=== PATIENT | female | born 1970 | race Caucasian/White ===

== ENCOUNTER 2020-09-13 17:46 | Outpatient (REF) | payer BC, SELFPAY ==
[2020-09-13 20:57] LABS: Calculated LDL 103 mg/dL (<100); Cholesterol 215 mg/dL (<200); HDL Cholesterol 92 mg/dL (40-60); Triglyceride 100 mg/dL (<150)
[2020-09-14 10:13] LABS: ALT 22 U/L (14-59); AST 17 U/L (15-37); Alkaline Phosphatase 69 U/L (46-116); Bilirubin, Direct 0.1 mg/dL (0.0-0.2); Bilirubin, Total 0.3 mg/dL (0.2-1.0); Total Protein 7.8 g/dL (6.4-8.2)
== END 2020-09-13 17:47 | disposition home or self-care (01) ==
LOC: NCHCN 17:46
PROVIDERS: PCP Internal Medicine; Visit Provider Internal Medicine
DX: B35.1 Tinea unguium (principal); Z13.220 Encounter for screening for lipoid disorders
CPT/HCPCS: 80061; 80076

== ENCOUNTER 2020-09-17 22:02 | Outpatient (REF) | payer BC, SELFPAY | END 2020-09-17 22:03 | disposition home or self-care (01) | LOC: NCHCN 22:02 | PROVIDERS: PCP Internal Medicine; Visit Provider Internal Medicine | DX: B35.1 Tinea unguium (principal) | CPT/HCPCS: 87101; 87206 ==

== ENCOUNTER 2021-10-04 16:16 | Outpatient (REF) | payer BC, SELFPAY ==
[2021-10-04 21:22] LABS: HCT 43.2 % (36.0-46.0); HGB 13.9 g/dL (11.2-15.7); MCH 28.5 pg (27.0-33.0); MCHC 32.2 % (32.0-36.0); MCV 88.7 fL (80-95); MPV 12.1 fL (8.0-11.0); Platelet Count 268 10^3/uL (130-400); RBC 4.87 10^6/uL (3.93-5.22); RDW 11.9 % (11.7-14.6); RDW-SD 38.4 fL; WBC 7.42 10^3/uL (4.4-10.8)
[2021-10-04 21:38] LABS: Anion Gap 15.2 mmol/L (3-11); BUN 18 mg/dL (7-18); CO2 25.8 mmol/L (21.0-32.0); CREATININE 0.7 mg/dL (0.55-1.02); Calcium 9.2 mg/dL (8.5-10.1); Chloride 98 mmol/L (98-107); Glucose 98 mg/dL (74-106); Potassium 4.2 mmol/L (3.5-5.1); Sodium 139 mmol/L (136-145); TSH 2.51 uIU/mL (0.36-3.74)
== END 2021-10-04 16:17 | disposition home or self-care (01) ==
LOC: NCHCN 16:16
PROVIDERS: PCP Internal Medicine; Visit Provider Internal Medicine
DX: R53.83 Other fatigue (principal); R00.2 Palpitations; K21.9 Gastro-esophageal reflux disease without esophagitis
CPT/HCPCS: 80048; 85027; 84443

== ENCOUNTER 2022-12-25 10:30 | Outpatient (REF) | payer BC, SELFPAY ==
[2022-12-25 17:21] LABS: Abs Immature Grans 0.04 10^3/uL (0.0-0.06); Absolute Basophil Count 0.09 10^3/uL (0.0-0.2); Absolute Eosinophil Count 0.22 10^3/uL (0.0-0.7); Absolute Lymphocyte Count 1.88 10^3/uL (1.2-3.4); Absolute Monocyte Count 0.54 10^3/uL (0.1-0.8); Absolute Neutrophil Count 3.49 10^3/uL (1.2-6.7); Basophils % 1.4; Eosinophils % 3.5; HCT 41.8 % (36.0-46.0); HGB 13.9 g/dL (11.2-15.7); Immature Grans % 0.6; MCH 29.9 pg (27.0-33.0); MCHC 33.3 % (32.0-36.0); MCV 90 fL (80-95); MPV 12.3 fL (8.0-11.0); Monocytes % 8.6; Neutrophils % 55.9; Platelet Count 254 10^3/uL (130-400); RBC 4.65 10^6/uL (3.93-5.22); RDW 11.7 % (11.7-14.6); WBC 6.26 10^3/uL (4.4-10.8)
[2022-12-25 17:26] LABS: ESR 9 mm/hr (0-30)
[2022-12-25 17:34] LABS: ALT 19 U/L (14-59); AST 15 U/L (15-37); Albumin 3.8 g/dL (3.4-5.0); Alkaline Phosphatase 54 U/L (46-116); Anion Gap 9.7 mmol/L (3-11); BUN 23 mg/dL (7-18); Bilirubin, Total 0.5 mg/dL (0.2-1.0); C-Reactive Protein 1.73 mg/dL (0.0-0.3); CO2 27.3 mmol/L (21.0-32.0); CREATININE 0.9 mg/dL (0.55-1.02); Chloride 103 mmol/L (98-107); Estimated GFR 76.92 (mL/min/1.73m2); Glucose 82 mg/dL (74-106); Potassium 4.6 mmol/L (3.5-5.1); Sodium 140 mmol/L (136-145); Total Protein 7.4 g/dL (6.4-8.2)
[2022-12-25 17:44] LABS: Hemoglobin A1C 5.2 % (<5.7)
[2022-12-27 12:55] LABS: ANA Interpretation Negative (Negative)
== END 2022-12-25 10:31 | disposition home or self-care (01) ==
LOC: NCHCN 10:30
PROVIDERS: PCP Internal Medicine; Visit Provider Internal Medicine
DX: H35.89 Other specified retinal disorders (principal)
CPT/HCPCS: 80053; 85652; 83036; 85025; 86038; 86140

== ENCOUNTER 2023-08-17 21:25 | Outpatient (REF) | payer BC, SELFPAY | END 2023-08-17 21:26 | disposition home or self-care (01) | LOC: LBN 21:25 | PROVIDERS: PCP Internal Medicine; Visit Provider Physician Assistant Medical | DX: J02.9 Acute pharyngitis, unspecified (principal) | CPT/HCPCS: 87070 ==

== ENCOUNTER 2023-11-29 18:21 | Outpatient (REF) | payer BC, SELFPAY ==
[2023-11-29 21:02] LABS: Abs Immature Grans 0.02 10^3/uL (0.0-0.06); Absolute Basophil Count 0.09 10^3/uL (0.0-0.2); Absolute Eosinophil Count 0.49 10^3/uL (0.0-0.7); Absolute Lymphocyte Count 2.17 10^3/uL (1.2-3.4); Absolute Monocyte Count 0.74 10^3/uL (0.1-0.8); Basophils % 1.3 %; Eosinophils % 7.1 %; HCT 43.7 % (36.0-46.0); HGB 14.8 g/dL (11.2-15.7); Immature Grans % 0.3 %; Lymphocytes % 31.4 %; MCH 29.4 pg (27.0-33.0); MCHC 33.9 % (32.0-36.0); MCV 87 fL (80-95); MPV 11.7 fL (8.0-11.0); Monocytes % 10.7 %; Neutrophils % 49.2 %; Platelet Count 285 10^3/uL (130-400); RBC 5.04 10^6/uL (3.93-5.22); RDW 11.9 % (11.7-14.6); RDW-SD 37.5 fL; WBC 6.91 10^3/uL (4.4-10.8)
[2023-11-29 21:35] LABS: C-Reactive Protein < 0.50 mg/dL (<or=0.5)
[2023-12-03 14:27] LABS: Lyme Ab w Rflx to Lyme Confirm Negative (Negative)
== END 2023-11-29 18:22 | disposition home or self-care (01) ==
LOC: NCHCN 18:21
PROVIDERS: PCP Internal Medicine; Visit Provider Family Medicine
DX: M25.59 Pain in other specified joint (principal)
CPT/HCPCS: 84443; 85025; 86140; 86618

== ENCOUNTER → 2023-12-03 03:50 | Outpatient (CLI) | payer BC, SELFPAY ==
--- NOTE | 2023-12-03 | DI.RAD_ITS ---
Exam(s) XR CERVICAL SPINE COMP 4-5V EXAM: XR CERVICAL SPINE COMP 4-5V CLINICAL HISTORY: CERVICAL RADICULOPATHY, M54.12 CERVICAL REGION. TECHNIQUE: 2D digital imaging was performed. COMPARISON: No exams were available for comparison FINDINGS: Five views. No evidence of fracture, listhesis, nor offset of the spinal laminar line. All the disc spaces exhib it normal height. No osteophytes. No facet arthropathy seen. Oblique views reveal no significant L uschka joint osteophytes nor foraminal narrowing. There are no cervical ribs. No osseous lesions. IMPRESSION: No significant radiographic findings on these five views of the cervical spine. DATA REPOSITORY: RADIATION DOSE DELIVERED:
== END ==
PROVIDERS: PCP Internal Medicine; Visit Provider Family Medicine
DX: M54.12 Radiculopathy, cervical region (principal)
CPT/HCPCS: 72050

== ENCOUNTER 2023-12-06 21:45 | Outpatient (REF) | payer BC, SELFPAY ==
[2023-12-06 21:12] LABS: ESR 12 mm/hr (0-30)
[2023-12-07 17:54] LABS: Rheumatoid Factor <8.6 IU/mL (<12.0)
[2023-12-10 14:57] LABS: ANA Interpretation Negative (Negative)
== END 2023-12-06 21:46 | disposition home or self-care (01) ==
LOC: NCHCN 21:45
PROVIDERS: PCP Internal Medicine; Visit Provider Family Medicine
DX: M25.50 Pain in unspecified joint (principal); M79.601 Pain in right arm
CPT/HCPCS: 85652; 86038; 86431

== ENCOUNTER 2024-01-30 15:02 | Outpatient (REF) | payer BC, SELFPAY ==
[2024-01-31 09:46] LABS: Cyclic Citrullinated Peptide <2.5 U/mL (<5.0)
[2024-01-31 09:58] LABS: Lyme Ab w Rflx to Lyme Confirm Negative (Negative)
== END 2024-01-30 15:03 | disposition home or self-care (01) ==
LOC: NCHCN 15:02
PROVIDERS: PCP Family Medicine; Visit Provider Family Medicine
DX: M25.59 Pain in other specified joint (principal)
CPT/HCPCS: 86200; 86618

== ENCOUNTER 2024-04-11 00:34 | Outpatient (CLI) | payer BC, SELFPAY ==
--- NOTE | 2024-04-11 09:32 | DI.RAD_ITS ---
Exam(s) XR SACROILIAC JOINTS EXAM: XR SACROILIAC JOINTS CLINICAL HISTORY: SACRAL LOW BACK PAIN,? SACROILITIS,m53.3. TECHNIQUE: 2D digital imaging was performed. COMPARISON: No exams were available for comparison FINDINGS: No evidence of pelvic fractures nor osseous lesions. There is some disc space narrowing the lower brett mbar spine noted. Respect of the sacroiliac joints there is no evidence of ankylosis. There is mild increased density the lateral-iliac side of the right sacroiliac joint. May indicate subtle sacroiliitis. Similar fin ding not seen on the opposite-left side. IMPRESSION: Possible mild right-sided sacroiliitis. If clinically indicated follow-up MRI with dedicated SI sequ ences can be performed. DATA REPOSITORY: RADIATION DOSE DELIVERED:
--- NOTE | 2024-04-11 09:32 | DI.RAD_ITS ---
Exam(s) XR CHEST 2V PA LATERAL EXAM: XR CHEST 2V PA LATERAL CLINICAL HISTORY: INFLAMMATORY ARTHRITIS,? SARCOID COUGH. TECHNIQUE: 2D digital imaging was performed. COMPARISON: No exams were available for comparison FINDINGS: 2 views: Heart size is normal. The mediastinum is not widened. Lungs are clear. No infiltrates nor pleural effusions. IMPRESSION: No acute pulmonary findings. DATA REPOSITORY: RADIATION DOSE DELIVERED:
== END 2024-04-11 00:54 ==
LOC: DI 00:34
PROVIDERS: PCP Family Medicine; Visit Provider Internal Medicine Rheumatology
DX: M53.3 Sacrococcygeal disorders, not elsewhere classified (principal)
CPT/HCPCS: 71046; 72202

== ENCOUNTER 2024-06-19 01:29 | Outpatient (CLI) | payer BC, SELFPAY ==
--- NOTE | 2024-06-19 | DI.MRI_ITS ---
Exam(s) MR PELVIS WO EXAM: MR PELVIS WO CLINICAL HISTORY: SACRAL BACK PAIN M53.3 SI PAIN, EVAL FOR ARTHRITIS OR SACROIILIITIS TECHNIQUE: Multiplanar multisequence MRI of Pelvis was performed COMPARISON: No exams were available for comparison FINDINGS: OSSEOUS: There is no evidence of sacral fracture nor sacral lesions. Also no abnormal signal in the coccyx an d Gwen coccygeal region. No evidence of stress fractures in the hips nor avascular necrosis nor sign ificant hip joint effusions. SACROILIAC JOINTS: No evidence of abnormal signal within the joint spaces and no evidence of erosions nor ankylosis. No significant signal abnormality around the left SI joint. There is very mild signal abnormality on both sides of the right sacroiliac joint evident on the fat suppressed fluid sensitive sequences (see coronal STIR sequence series 7001/image 14-15). SACRAL CANAL: No evidence of mass nor Tarlov intra sacral cysts. OTHER: There appears to be an element of spinal canal stenosis the lower lumbar spine, not possible t o assess on this type of study which is limited to the sacrum. There are cysts in the left ovary, either 2 adjacent cysts or 1 septated cyst with combined measureme nt of 3 x 2 cm. There a small amount of fluid in the cul-de-sac. IMPRESSION: 1. Subtle right sacroiliac joint signal abnormality as described above. Either related to mild degen erative changes or very mild sacroiliitis. Similar subtle findings not seen in the opposite-left SI joint. No evidence of osseous erosions at the level of the SI joints and no evidence of ankylosis. 2. Possible spinal canal stenosis in the lower lumbar spine seen in the most peripheral aspect of the field of view. If clinically indicated further study with lumbar spine MRI study can be performed. 3. Incidental left adnexal findings as described above. Also small amount of fluid in the cul-de-sac . Recommend follow-up pelvic ultrasound DATA REPOSITORY:
== END 2024-06-19 01:49 ==
LOC: DI 01:29
PROVIDERS: PCP Family Medicine; Visit Provider Internal Medicine Rheumatology
DX: M53.3 Sacrococcygeal disorders, not elsewhere classified (principal)
CPT/HCPCS: 72195

== ENCOUNTER 2024-06-19 02:56 | Outpatient (CLI) | payer BC, SELFPAY ==
[2024-06-19 14:10] LABS: C-Reactive Protein < 0.50 mg/dL (<or=0.5)
== END 2024-06-19 02:57 | disposition home or self-care (01) ==
LOC: LBO 02:56
PROVIDERS: PCP Family Medicine; Visit Provider Internal Medicine Rheumatology
DX: M53.3 Sacrococcygeal disorders, not elsewhere classified (principal)
CPT/HCPCS: 36415; 86140

== ENCOUNTER 2024-09-16 15:52 | Outpatient (REF) | payer BC, SELFPAY ==
[2024-09-16 16:05] LABS: Calculated LDL 139 mg/dL (<100); Cholesterol 237 mg/dL (<200); HDL Cholesterol 74 mg/dL (>or=50); Triglyceride 124 mg/dL (<150)
[2024-09-16 22:36] LABS: HIV-1/2 Ag & Ab Screen Negative (Negative)
== END 2024-09-16 15:53 | disposition home or self-care (01) ==
LOC: NCHCN 15:52
PROVIDERS: PCP Family Medicine; Visit Provider Family Medicine
DX: Z13.6 Encounter for screening for cardiovascular disorders (principal); Z11.4 Encounter for screening for human immunodeficiency virus [HIV]
CPT/HCPCS: 80061; 87389

== ENCOUNTER 2024-11-11 03:50 | Outpatient (CLI) | payer BC, SELFPAY ==
[2024-11-11 15:48] LABS: HCT 41.2 % (36.0-46.0); MCH 29.7 pg (27.0-33.0); MCV 87 fL (80-95); MPV 11.1 fL (8.0-11.0); Platelet Count 245 10^3/uL (130-400); RBC 4.72 10^6/uL (3.93-5.22); RDW 11.9 % (11.7-14.6); RDW-SD 38.5 fL; WBC 10.71 10^3/uL (4.4-10.8)
[2024-11-11 16:06] LABS: Absolute Eosinophil Count 0.11 10^3/uL (0.0-0.7); Absolute Monocyte Count 1.29 10^3/uL (0.1-0.8); Absolute Neutrophil Count 6.32 10^3/uL (1.2-6.7); Atypical Lymphocytes % 1 %; Diff Comment Manual Differential; RBC Morphology Normal
[2024-11-11 16:37] LABS: ALT 20 U/L (14-59); AST 16 U/L (15-37); Albumin 4.2 g/dL (3.4-5.0); Alkaline Phosphatase 123 U/L (46-116); Anion Gap 5.3 mmol/L (3-11); BUN 17 mg/dL (7-18); Bilirubin, Total 0.4 mg/dL (0.2-1.0); CO2 32.7 mmol/L (21.0-32.0); CREATININE 0.8 mg/dL (0.55-1.02); Calcium 9.9 mg/dL (8.5-10.1); Chloride 101 mmol/L (98-107); Glucose 89 mg/dL (74-106); Potassium 3.6 mmol/L (3.5-5.1); Sodium 139 mmol/L (136-145); Total Protein 8.3 g/dL (6.4-8.2)
== END 2024-11-11 03:51 | disposition home or self-care (01) ==
LOC: LBO 03:50
PROVIDERS: PCP Family Medicine; Visit Provider Nurse Practitioner Acute Care
DX: M47.819 Spondylosis without myelopathy or radiculopathy, site unspecified (principal); Z79.899 Other long term (current) drug therapy
CPT/HCPCS: 36415; 80053; 85025

== ENCOUNTER 2025-02-09 06:59 | Day surgery (SDC) | payer BC, SELFPAY ==
--- NOTE | 2025-02-08 17:13 | W.PM.DSUDISC ---
Date of service: 02/09/25 Discharge Plan Disposition Patient Disposition: Home Condition: Good Discharge Details Reason For Visit: screening colonoscopy Attending Provider: Mahamed Eaton Primary Care Provider: Michelle Scott Home Meds and New Rx's Prescriptions: Continued cyanocobalamin (vitamin B-12) 1,000 mcg capsule 1,000 mcg PO DAILY adalimumab-adaz [Hyrimoz(CF)] 40 mg/0.4 mL syringe See Rx Instructions subcut .COMPLEX Rx Instructions: inject one - 40 mg/0.4 mL syringe every 2 weeks subcut sertraline 25 mg tablet 50 mg PO DAILY cholecalciferol (vitamin D3) 1,000 UNITS tablet 1,000 units PO DAILY Discontinued bisacodyl [Dulcolax (bisacodyl)] 5 mg tablet,delayed release (DR/EC) 5 mg PO ONCE Qty: 4 0RF Rx Instructions: Take per colonoscopy instructions provided by ordering providers office polyethylene glycol 3350 17 gram/dose powder 17 g PO ONCE Qty: 238 0RF Rx Instructions: Take per colonoscopy instructions provided by ordering providers office Discharge Instructions Instructions: Colon polyps Additional Instructions: Theresa, it was very nice to meet you today, and I hope you feel well after the procedure. Things went very smoothly. Your prep was excellent, and I could see everything fine. I did find, and remove 1 small polyp from your rectum today. There are no worrisome features to the naked eye, but to be safe, I will send this to the pathologist for them to review. Polyps, different varieties, and we use the information from the polyp analysis to help guide recommendations for future colonoscopies. Those results will take about a week or so to get back, but once my office has had information, we will be in touch. If you need anything, or have any questions at all, please do not hesitate to ask at any time. 1. If tolerated, consume a soft, low fiber diet for 1-2 days. 2[address] Do not drive, drink alcohol, operate machinery, make critical decisions, or do activities that require coordination or balance for 24 hours. 3. Because air was put into your colon during the procedure, expelling air from your rectum (passing gas or farting) is normal. 4. You may not have a bowel movement for 1-3 days because of the colonoscopy prep. This is normal. 5. Go directly to the emergency room if you notice any of the following: Develop chills (warm to touch), or if you have a thermometer and your temperature is above 101 Difficulty breathing or difficultly swallowing Persistent vomiting Severe abdominal pain, other than gas cramps Severe chest pain Black, tarry stools Any bleeding ? exceeding one tablespoon 6. Call your physician if the site where your intravenous was started becomes red, swollen, painful, and warm to touch. 7. Your physician has reviewed your pre-procedure medications. Please continue to take those medications as previously ordered. You will be given specific information/education regarding any changes to your medications before leaving. Activity:: Activity as Tolerated Diet:: As Tolerated Discharge Orders Discharge Orders: Discharge Order (Routine); Ordered 02/08/25 Ordered By: Mahamed Eaton DS: Diagnosis Discharge Diagnosis (1) Encounter for screening colonoscopy: Status: Acute Asessment and Plan: Follow-up on polypectomy results
--- NOTE | 2025-02-08 17:14 | W.COLOREPORT ---
Date of service: 02/09/25 Time of Service: 09:12 Colonoscopy Report Date of procedure: 02/09/25 Pre-op diagnosis general: screening colonoscopy Post-op diagnosis procedure note: other (Rectal polyp) Procedure: colonoscopy with polypectomy Surgeon: Mahamed Eaton Anesthesia Type: General:No Airway Estimated blood loss (mL): 5 Pathology: other (0.25 cm flat rectal polyp) Complications: None Disposition: same day Indications: Theresa is a 54 year old woman who needs a screening colonoscopy Prep: Miralax/Dulcolax Procedure Start Time: : Procedure End Time: 09:00 Retraction Time: 11 Findings: 0.25 cm flat rectal polyp Procedure Description: After the induction of anesthesia, and with the patient in left lateral decubitus position, I began by performing an external anorectal exam.? Perineum and skin were normal, as was the anal verge.? There was no evidence of external hemorrhoids.? Next, I performed a digital rectal exam.? I did not appreciate any abnormal findings.? Next, I advanced a colonoscope into the rectal vault.? I performed retroflexion.? This appeared normal.? Using irrigation, I then advanced the colonoscope beyond the rectal folds and into the sigmoid colon before advancing towards the cecum.?The scope was noted to be in the cecum by identification of the ileocecal valve and appendiceal orifice.? I then began withdrawing the colonoscope using repeated irrigation as necessary for full evaluation of the colonic mucosa. ?Once the scope was withdrawn to the level of the rectum, great care was taken to examine portions of the rectal folds.? In the upper portion of the rectal vault was a 0.25 cm flat polyp. This was removed with cold forceps with minimal bleeding finally, the scope was withdrawn and the patient was brought to the same-day surgery recovery unit as the anesthetic wore off. ?The findings and instructions were shared with the patient prior to discharge. Hooker Bowel Prep Hooker Bowel Prep Right Colon: 3 Left Colon: 3 Transverse Colon: 3 Total Score: 9
[2025-02-09 07:19] VITALS: BP 126/76; PULSE 77; RESP 15; TEMP 36.7; O2SAT 100
[2025-02-09] MEDS: Lactated Ringers 1,000 ML 80 ML IV (07:37)
--- NOTE | 2025-02-09 07:46 | ANES.PREOP_ITS ---
General Info Date of Service Date Performed: 02/09/25 Height: 5 ft 5 in Weight: 73.1 kg Body Mass Index (BMI): 26.8 Surgical Procedure: Operation Date: 02/09/25 08:20 Proposed Procedure Side Surgeon liam Eaton MD Meds Allergies and Home Medications Allergies Allergy/AdvReac Type Severity Reaction Status Date / Time tomato Allergy Intermediate RASH Verified 02/09/25 07:11 paroxetine HCl (From Paxil) AdvReac Severe MANAGER HOTEL Verified 02/09/25 07:11 amoxicillin AdvReac Intermediate HEADACHE Verified 02/09/25 07:11 CERTAIN FRUITS AdvReac Severe MANAGER HOTEL Uncoded 02/09/25 07:11 Home Medication ?Medication ?Instructions ?Recorded cholecalciferol (vitamin D3) 25 1,000 units PO DAILY 1 07/17/16 mcg (1,000 unit) tablet cyanocobalamin (vitamin B-12) 1,000 mcg PO DAILY 12/19 1,000 mcg capsule adalimumab-adaz 40 mg/0.4 mL See Rx Instructions subcu t .COMPLEX 11/05/24 subcutaneous syringe (Hyrimoz(CF)) sertraline 25 mg tablet 50 mg PO DAILY 01/22/25 Current Visit Medications: Current Medications Generic Name Dose Route Start Last Admin Trade Name Freq PRN Reason Stop Dose Admin Ringer's Solution 1,000 mls @ 80 mls/hr 02/09/25 06:00 02/09/25 07:37 IV 02/09/25 23:59 80 mls/hr INFUSION RAZA Administration IV Miscellaneous Supplies 1 each 02/09/25 06:00 Iv Access IV 02/09/25 23:59 DIRECTED RAZA Ondansetron HCl 4 mg 02/08/25 17:15 Ondansetron 4 Mg/2 Ml Vial IVP 03/10/25 17:14 Q4H PRN PRN Nausea / Vomiting Sodium Chloride 0 ml 02/09/25 06:00 Normal Saline Flush 10 Ml Syr IV 02/09/25 23:59 PRN PRN Sodium Chloride 0 ml 02/09/25 06:00 Normal Saline 10 Ml Vial IJ 02/09/25 23:59 DIRECTED PRN Sterile Water 0 ml 02/09/25 06:00 Water,Injection,Sterile 10 Ml Vial IJ 02/09/25 23:59 DIRECTED PRN PFSH Active Problems Active Problems: Problem Status Onset Code Encounter for screening colonoscopy Acute Z12.11 Polyarthralgia Acute M25.50 Trigger finger, left little finger Acute M65.352 Lateral epicondylitis of right elbow Acute M77.11 Medical History Medical History Hx of fracture of arm History of palpitations Per pt. states it was a passing thing years ago, and never amounted into anything. Sore throat GERD without esophagitis HLD (hyperlipidemia) Lesion of radial nerve Reactive arthritis Anxiety Tobacco Smoking/Tobacco Use Status: Never Passive smoking exposure: No Alcohol Alcohol Intake: current Alcohol intake frequency: a few times a month Substance Use Substance use: Never Substance use type: does not use Vital Signs and Lab Results Vital Signs Most Recent Vital Signs in EMR: Most Recent Vital Signs Temp Pulse Resp BP Pulse Ox 36.7 C 77 15 126/76 100 02/09/25 07:19 02/09/25 07:19 02/09/25 07:19 02/09/25 07:19 02/09/25 07:19 Anesthesia Assessment and Plan Anesthesia History Personal History: No History of Anesthesia Complications Family History: No Family History of Anesthesia Complications Exercise Tolerance Exercise Tolerance: Metabolic Equivalents>4 Pertinent Negatives Pertinent Negatives: No Symptoms of GERD, No Major Cardiovascular Symptoms or Complaints and No Major Pulmonary Symptoms or Complaints Cardiac & Pulmonary Exam Cardiac Exam: Normal S1/S2 Heart Sounds Pulmonary Exam: Clear Bilateral Breath Sounds Implantable Cardiac Device Does patient have a Pacemaker or an ICD?: No Airway Exam Known Difficult Airway: No Mallampati Class: 3 Mouth Opening: Normal (> 3cm) Thyromental Distance: Less than 3 cm Neck Range of Motion: Full ROM Neck Circumference: Normal Teeth Condition: Normal Dentition and Loose or Chipped (left front tooth chipped) ASA Classification ASA Score: ASA 2 Emergency Case?: No NPO Status NPO Status: NPO Clears >2 hours, Solids >8 hours Status Status: Not Relevant due to Medical History Anesthesia Plan Resuscitation Status: Full Code Anesthesia Technique: General Anesthesia Airway Planned: Natural Airway Monitors Used: Standard Monitors Preoperative Comments:: 54 y/o female with history of reactive arthritis, anxiety and GERD presents for colonoscopy screening.
[2025-02-09 08:35] VITALS: BMI 26.8
--- NOTE | 2025-02-09 08:59 | BOWEL_PTH ---
PATIENT: Theresa Sparsk LOC: [facility] U#:[id number] AGE/SX: 54/F ROOM: RE02/09/[address]: Mahamed Eaton MD : 1970 BED: DIS: 02/09/2025 SPEC #: [id number] RECD: 02/09/25 13:39 STATUS: MIGUEL REQ #: [id number] FABY: 02/09/25 08:[address]: Mahamed Eaton DEPT: Surgical Specimen RECD BY: Jessica Calloway ENTERED: 02/09/25 13:40 SP TYPE: Bowel OTHR DR: Michelle Scott Tissues: 1 - BIOPSY BOWEL Procedures: GROSS AND MICRO LEVEL 4 Comments: [id number]
[2025-02-09 09:05] VITALS: BP 110/64; PULSE 66; RESP 16; TEMP 36.4; O2SAT 97
--- NOTE | 2025-02-09 09:20 | W.ANESPOSTOP ---
Postoperative Evaluation Date, Time and Location Date Performed: 02/09/25 Time Performed: 09:18 Patient Location: Day Surgery Unit Vital Signs Most Recent Imported Vital Signs: Most Recent Vital Signs Temp Pulse Resp BP Pulse Ox 36.4 C L 66 16 110/64 97 02/09/25 09:05 02/09/25 09:05 02/09/25 09:05 02/09/25 09:05 02/09/25 09:05 Pain Score Most Recent Pain Score: Most Recent Pain Score Pain Level 2 02/09/25 07:19 Assessment Mental Status: Awake (Alert & Oriented to Patient Baseline) Airway and Respiratory Function: Patent airway with normal (patient baseline) respiratory exam Cardiovascular Function: Hemodynamically Stable Hydration Status: Adequately Hydrated Nausea & Vomiting: No Nausea or Vomiting Pain: Pt. Denies Any Pain Peripheral Nerve Block: Patient did not receive a nerve block
[2025-02-09 09:30] VITALS: BP 110/73; PULSE 64; RESP 18; TEMP 36.3; O2SAT 100
== END 2025-02-09 10:17 | disposition home or self-care (01) ==
LOC: SUR 07:00
PROVIDERS: PCP Family Medicine; Visit Provider Surgery
PROC: 0DJD8ZZ Inspection of Lower Intestinal Tract, Via Natural or Artificial Opening Endoscopic (ICD-10-PCS; CPT 45378; principal; 2025-02-09 08:15)
DX: Z12.11 Encounter for screening for malignant neoplasm of colon (principal); D12.8 Benign neoplasm of rectum
CPT/HCPCS: 45380; 88305; J2003; J2704